=== PATIENT | male | born 1940 | race Hispanic/Latino ===

== ENCOUNTER → 2017-12-09 | Outpatient (CLI) | payer OTHER | END | disposition home or self-care (01) | LOC: SHCH 12:31 | PROVIDERS: ATTEND Internal Medicine Cardiovascular Disease | DX: I10 Essential (primary) hypertension (principal); R60.9 Edema, unspecified; R94.31 Abnormal electrocardiogram [ECG] [EKG] | CPT/HCPCS: 93925; 93970 ==

== ENCOUNTER → 2017-12-11 | Outpatient (CLI) | payer OTHER | END | disposition home or self-care (01) | LOC: SHCH 14:57 | PROVIDERS: ATTEND Internal Medicine Cardiovascular Disease | DX: I10 Essential (primary) hypertension (principal); R94.31 Abnormal electrocardiogram [ECG] [EKG]; R06.9 Unspecified abnormalities of breathing | CPT/HCPCS: 93306 ==

== ENCOUNTER → 2018-06-04 | Outpatient (CLI) | payer OTHER | END | disposition home or self-care (01) | LOC: SHCH 14:26 | PROVIDERS: ATTEND Internal Medicine Cardiovascular Disease | DX: I87.2 Venous insufficiency (chronic) (peripheral) (principal) | CPT/HCPCS: 93970 ==

== ENCOUNTER → 2019-03-09 | Outpatient (CLI) | payer OTHER | END | disposition home or self-care (01) | LOC: RAH 10:30 | PROVIDERS: ATTEND Family Medicine | DX: K80.21 Calculus of gallbladder without cholecystitis with obstruction (principal); K76.0 Fatty (change of) liver, not elsewhere classified | CPT/HCPCS: 76700 ==

== ENCOUNTER → 2022-08-28 | Outpatient (CLI) | payer OTHER | END | disposition home or self-care (01) | LOC: SHCH 14:14 | PROVIDERS: ATTEND Internal Medicine Cardiovascular Disease | DX: I87.2 Venous insufficiency (chronic) (peripheral) (principal); I82.511 Chronic embolism and thrombosis of right femoral vein | CPT/HCPCS: 93970 ==

== ENCOUNTER → 2023-04-29 | Outpatient (CLI) | payer OTHER | END | disposition home or self-care (01) | LOC: SHCH 14:56 | PROVIDERS: ATTEND Internal Medicine Cardiovascular Disease | DX: R06.09 Other forms of dyspnea (principal); R60.9 Edema, unspecified | CPT/HCPCS: 93306 ==

== ENCOUNTER 2024-11-14 19:04 | Emergency (ER) | payer OTHER ==
[~2024-11-14] VITALS: Ht 175.3 cm; Wt 124.7 kg
[~2024-11-14 19:04] MED LIST: DUTA0.5C37 PO
[2024-11-14] MEDS ORDERED: FURO20TA4 PO (19:47)
[2024-11-14 19:57] LABS: BASOPHILS # (AUTO) 0.01 K/uL (0.00-0.20); BASOPHILS % (AUTO) 0.1 % (0.0-5.0); EOSINOPHILS # (AUTO) 0.02 K/uL (0.00-0.70); EOSINOPHILS % (AUTO) 0.2 % (0.0-8.0); HEMATOCRIT 34.4 % (42-54); IMMATURE GRANULOCYTE ABSOLUTE 0.03 K/uL (0-1); LYMPHOCYTES # (AUTO) 0.4 K/uL (1.0-4.8); LYMPHOCYTES % (AUTO) 4.5 % (21.0-51.0); MEAN CORPUSCULAR HGB CONC 30.2 g/dL (32.0-36.0); MEAN CORPUSCULAR VOLUME 72.9 fL (79-99); MONOCYTES # (AUTO) 0.5 K/uL (0.1-1.0); NEUTROPHILS # (AUTO) 8.4 K/uL (1.8-7.7); NEUTROPHILS % (AUTO) 89.9 % (40.0-77.0); PLATELET COUNT (AUTO) 274 K/uL (130-400); RED BLOOD CELL COUNT(AUTO) 4.72 MIL/uL (4.50-6.20); WHITE BLOOD COUNT (AUTO) 9.4 K/uL (4.8-10.8)
[2024-11-14] MEDS: DICYCLOMINE HCL 10 MG/5 ML ML PO ONE (19:59)
[2024-11-14] MEDS: MAG/ALUM/SIMETH 30 ML UDCUP PO ONE (19:59)
[2024-11-14] MEDS: PANTOPrazole 40 MG/VIAL IVP ONE (19:59)
[2024-11-14] MEDS: LIDOCAINE HCL 2% VISCOUS 15 ML UDCUP PO ONE (19:59)
[2024-11-14 20:06] LABS: CREATININE 0.8 mg/dL (0.5-1.3); POTASSIUM 4.3 mmol/L (3.5-5.1)
[2024-11-14 20:16] LABS: ALBUMIN 2.7 g/dL (3.5-5.0); BILIRUBIN,DIRECT 0.1 mg/dL (0.0-0.3); BILIRUBIN,TOTAL 0.4 mg/dL (0.2-1.0); TOTAL PROTEIN, SERUM 6.7 g/dL (6.0-8.3)
--- NOTE | 2024-11-14 20:31 | EKG ---
[facility] Test Date: 2024-11-14 Test Time: 19:32:00 Pat Name: YVETTE HATHAWAY Department: [facility] Room: Gender: M Steward/Stewardess: [id number] : 1940 Requested By: ELLEN GODDARD Order Number: [id number] Reading MD: Kade Vitale Measurements Intervals [place] Rate: 78 P: -24 SD: 181 QRS: -32 QRSD: 112 T: 37 QT: 416 QTc: 473 Interpretive Statements Sinus rhythm Multiple premature complexes, vent & supraven Left ventricular hypertrophy Compared to ECG 08/25/2016 17:48:38 Left ventricular hypertrophy now present Sinus arrhythmia no longer present Ventricular premature complex(es) no longer present Fusion complex(es) no longer present Incomplete right bundle-branch block no longer present Electronically Signed On 11-15-2024 19:31:37 CDT by Kade Vitale Please click the below link to view image of tracing.
[2024-11-14] MEDS: ondanSETRON 4MG INJ IVP ONE (20:48)
--- NOTE | 2024-11-14 21:10 | ERN ---
ED Note History of Present Illness Stated Complaint: ABDOMINAL BLOATING Chief Complaint: Abdominal Pain Time Seen by MD: 19:09 Time Seen by Midlevel: 19:09 Dictation: The patient is an 84-year-old male with a history of prostate cancer, appendectomy, arthritis who presents to the emergency department with complaints of abdominal bloating onset yesterday. Patient reports sensation of bloating but no pain. Denies any fevers, diarrhea or constipation, nausea or vomiting. Patient reports last bowel movement was just prior to arrival. Allergies: Coded Allergies: No Known Drug Allergies (Unverified Allergy, Unknown, 03/18/24) Home Meds Reported Medications Furosemide (Furosemide) 20 Mg Tablet, 2 TAB PO BID for 30 Days, #30 TAB 0 Refills 11/14/24 Dutasteride (Dutasteride) 0.5 Mg Capsule, 1 CAP PO DAILY 03/18/24 Past Medical History Past Medical History: Cancer, Other Additional Past Medical Hx: PROSTATE CA Surgical History: Appendectomy RN Note Reviewed/Agreed w/PFSH: Yes Review of System Dictation Constitutional: Negative for fever,chills, and weight loss Eyes: Negative for injury, pain,redness, and discharge ENT: Negative for injury,pain or swelling Cardiovascular: Negative for chest pain, palpitations, and edema Respiratory: Negative for shortness of breath, cough, and wheezing, Abdomen/GI: Negative for nausea, vomiting, diarrhea, and constipation positive for abdominal pain, Back: Negative for injury and pain : Negative for injury, bleeding and discharge MS/Extremity: Negative for injury and deformity Skin: Negative for rash, and discoloration Neuro: Negative for headache, weakness, numbness, tingling, and seizure Psych: Negative for suicide ideation, homicidal ideation, and hallucinations Initial Vital Sign VS Vital Signs Date Time Temp Pulse Resp B/P (MAP) Pulse Ox O2 Delivery O2 Flow Rate FiO2 11/14/24 19:10 97.9 62 18 147/80 95 Room Air 0 11/14/24 19:16 21 Physical Exam Dictation Vital Signs reviewed General Appearance: Alert, oriented x 3, no acute distress, well developed, nourished. Head and Face: non-traumatic. Eyes: pink conjunctivas, eyelid no trauma, anterior chamber with arcus senilis. Ears: Pinnas intact and no signs of trauma or erythema ear canals clear and no discharge TM no erythema Nose: No discharge, no bleeding. Oropharynx: Mouth normal, tongue pink. pharynx clear,no erythema, tonsils no exudates, no abscesses noted, mucous membrane moist Neck: Supple, non-tender, no thyromegaly, no masses, no JVD, no bruits Breast:Deferred Chest:No tenderness, no crepitus, no paradoxical movement, no retractions Lungs:Clear, well-ventilated, symmetric, no rales, no wheezing, no rhonchi, no stridor, good breath sounds bilaterally Heart: Regular rate, regular rhythm, no murmur, no gallops Vascular: Bilateral 4+ pitting edema (patient reports chronic) Abdomen: Soft, positive bowel sounds, nondistended, no guarding, nontender, no rebound, no masses no hepatomegaly, no splenomegaly, no Escobar's sign, no hernias. Rectal: Deferred Genital: Deferred Neurological: Normal speech, motor function intact, sensory function intact Musculoskeletal: Neck nontender, full range of motion, back nontender, full range of motion, Extremities: nontender, full range of motion Skin: Color pink, dry, no turgor, no rash, no lacerations, no abrasions, no contusions. Lymphatic: Deferred Results (Laboratory/Radiology) Laboratory/Radiology Laboratory Tests Test 11/14/24 19:40 White Blood Count 9.4 K/uL (4.8-10.8) Red Blood Count 4.72 MIL/uL (4.50-6.20) Hemoglobin 10.4 g/dL (14.0-18.0) L Hematocrit 34.4 % (42-54) L Mean Corpuscular Volume 72.9 fL (79-99) L Mean Corpuscular Hemoglobin 22.0 pg (27.0-33.0) L Mean Corpuscular Hemoglobin Concent 30.2 g/dL (32.0-36.0) L Red Cell Distribution Width 15.0 % (11.0-15.5) Platelet Count 274 K/uL (130-400) Mean Platelet Volume 8.6 fL (7.5-10.5) Immature Granulocyte % (Auto) 0.3 % (0-1) Neutrophils (%) (Auto) 89.9 % (40.0-77.0) H Lymphocytes (%) (Auto) 4.5 % (21.0-51.0) L Monocytes (%) (Auto) 5.0 % (3.0-13.0) Eosinophils (%) (Auto) 0.2 % (0.0-8.0) Basophils (%) (Auto) 0.1 % (0.0-5.0) Neutrophils # (Auto) 8.4 K/uL (1.8-7.7) H Lymphocytes # (Auto) 0.4 K/uL (1.0-4.8) L Monocytes # (Auto) 0.5 K/uL (0.1-1.0) Eosinophils # (Auto) 0.02 K/uL (0.00-0.70) Basophils # (Auto) 0.01 K/uL (0.00-0.20) Absolute Immature Granulocyte (auto 0.03 K/uL (0-1) Nucleated Red Blood Cells 0.0 % (0.0-0.19) White Cell Morphology Comment See comments Red Blood Cell Morphology ANISO 1+ Sodium Level 134 mmol/L (136-145) L Potassium Level 4.3 mmol/L (3.5-5.1) Chloride Level 97 mmol/L (101-111) L Carbon Dioxide Level 37 mmol/L (21-32) H Blood Urea Nitrogen 9 mg/dL (7-18) Creatinine 0.8 mg/dL (0.5-1.3) Glomerular Filtration Rate Calc 87 mL/min (>90) Random Glucose 128 mg/dL (70-105) H Total Calcium 9.5 mg/dL (8.5-10.1) Total Bilirubin 0.4 mg/dL (0.2-1.0) Direct Bilirubin 0.1 mg/dL (0.0-0.3) Aspartate Amino Transf (AST/SGOT) 24 U/L (10-37) Alanine Aminotransferase (ALT/SGPT) 11 U/L (12-78) L Alkaline Phosphatase 110 U/L (50-136) Troponin I High Sensitivity 16 ng/L (4-75) Total Protein 6.7 g/dL (6.0-8.3) Albumin 2.7 g/dL (3.5-5.0) L Lipase 31 U/L (16-77) SERVICE [id number] REASON: ABD PAIN ORDERING PHYSICIAN: ELLEN GODDARD MACHINE BINDING FOLDER PROCEDURE: ABD PEL WO - CT ABDOMEN/PELVIS W/O CONTRAST CT ABDOMEN/PELVIS W/O CONTRAST HISTORY: Abdominal pain COMPARISON: 08/25/2016 TECHNIQUE: Multiple sequential axial images of the abdomen and pelvis were obtained from the dome of the diaphragm through symphysis pubis. Patient was not given contrast through intravenous route. Oral contrast was not given. FINDINGS: No pleural effusion is seen bilaterally. There is no evidence of parenchymal disease or pulmonary nodule of the visualized lower lungs. Degenerative changes of the thoracolumbar spine are present. The heart is not enlarged. Gallstones are seen in the contracted gallbladder. Gastric distention is seen. Fluid filled small bowel loops and colon suggestive of enterocolitis. There is diverticulosis. The liver, spleen, adrenal glands and pancreas are unremarkable. There is no evidence of hydronephrosis bilaterally. No evidence of renal stone is seen. Fecal material is seen in the colon. There are normal size retroperitoneal and mesenteric lymph nodes. No ascites is seen. Atherosclerotic changes are present. Pelvic sidewalls are symmetric bilaterally. Bladder is poorly distended without wall thickening. IMPRESSION: 1. Gallstones are seen in the contracted gallbladder. Gastric distention is seen. Fluid filled small bowel loops and colon suggestive of enterocolitis. There is diverticulosis. CT was performed with one or more following dose reduction techniques: automated exposure control, adjustment of the mA and kv according to patient's size, or use of a iterative reconstruction technique. Labs Reviewed?: Yes EKG: (+) rhythm (Sinus rhythm) EKG Comment: Date:11/14/2024 Time:193 Ventricular rate:78 NE interval:181 QRS duration:112 QT/QTc:473 EKG interpretation: Sinus rhythm Reviewed by ED Attending no STEMI ED Course ED Course Orders Procedure Category Date Status Time Cbc With Differential LAB 11/14/24 Complete 19:22 Troponin I High LAB 11/14/24 Complete Sensitivity 19:22 Urinalysis Profile LAB 11/14/24 Logged 19:22 Lipase LAB 11/14/24 Complete 19:22 Basic Metabolic Panel LAB 11/14/24 Complete 19:22 Hepatic Function Panel LAB 11/14/24 Complete 19:22 12 Lead Ekg Tracing- EKG 11/14/24 Complete Technical 19:22 Lidocaine Hcl 2% PHA 11/14/24 Complete Viscous (Lidocaine Hcl 19:30 Mag/Alum/Simeth 30ml PHA 11/14/24 Complete (Maalox Plus 30ml) 19:30 Pantoprazole 40mg Inj PHA 11/14/24 Complete (Protonix 40mg Inj 19:30 Dicyclomine Hcl PHA 11/14/24 Complete (Bentyl 10mg/5ml 19:30 Ondansetron 4mg Inj PHA 11/14/24 Complete (Zofran 4mg Inj) 21:00 Ct Abdomen/Pelvis W/O CT 11/14/24 Resulted Contrast 23:05 Current Medications Medications (Trade) Dose Ordered Sig/Kimberli Route PRN Reason Start Time Stop Time Status Last Admin Dose Admin Al Hydroxide/Mg Hydroxide (MAALox PLUS 30ML) 30 ml ONCE ONCE PO 11/14/24 19:30 11/14/24 19:34 DC 11/14/24 19:59 Dicyclomine HCl (Bentyl 10mg/5ml Syrup) 10 mg ONCE ONCE PO 11/14/24 19:30 11/14/24 19:34 DC 11/14/24 19:59 Lidocaine HCl (Lidocaine HCl 2% Viscous) 10 ml ONCE ONCE PO 11/14/24 19:30 11/14/24 19:34 DC 11/14/24 19:59 Ondansetron HCl (zoFRAN 4MG INJ) 4 mg ONCE ONCE IVP 11/14/24 21:00 11/14/24 21:01 DC 11/14/24 20:48 Pantoprazole Sodium (PROTonix 40MG INJ) 40 mg ONCE ONCE IVP 11/14/24 19:30 11/14/24 19:34 DC 11/14/24 19:59 Vital Signs Date Time Temp Pulse Resp B/P (MAP) Pulse Ox O2 Delivery O2 Flow Rate FiO2 11/14/24 19:16 98.4 83 18 125/74 95 Room Air* 0 21 11/14/24 19:10 97.9 62 18 147/80 95 Room Air 0 Medical Decision Making MDM The patient is an 84-year-old male with a history of prostate cancer, appendectomy, arthritis who presents to the emergency department with complaints of abdominal bloating onset yesterday. Patient reports sensation of bloating but no pain. Denies any fevers, diarrhea or constipation, nausea or vomiting. Patient reports last bowel movement was just prior to arrival. CBC showed no leukocytosis, mild microcytic anemia, chemistry showed mild hyponatremia, hypochloremia, normal liver enzymes, negative lipase, negative troponin CT showed some enterocolitis and gallstones. Patient with a nontender abdomen to palpation. Labs and imaging discussed with the patient who agrees to be discharged and follow up with primary doctor. Patient in no acute distress. Stable vital signs. Disposition delayed due to patient initially refusing CT scan. Then patient agreed to have CT scan done. Differential diagnosis: Gastroenteritis, gastritis, electrolyte imbalance, bowel obstruction Need for hospitalization: Patient does not meet criteria for hospitalization. There are no social concerns with this patient. DX & DISP Disposition: Discharge Departure Impression: Primary Impression: Abdominal discomfort Additional Impressions: Enterocolitis, Gallstones Condition: Stable Scripts Pantoprazole Sodium (Pantoprazole Sodium) 20 Mg Tablet.dr 1 TAB PO DAILY for 30 Days, #30 TAB 0 Refills Prov: ELLEN GODDARD 11/15/24 Additional Instructions: Please follow up with your primary doctor in 1-2 days. If symptoms worsen please return to ER. Avoid any foods that increase your discomfort like fatty foods, FOLLOW-UP WITH PRIMARY CARE PROVIDER IN 1 TO 2 DAYS. TAKE MEDICATIONS DIRECTED HERE IN THE EMERGENCY ROOM. OKAY TO CONTINUE HOME MEDICATIONS UNLESS OTHERWISE DISCUSSED DURING YOUR VISIT IN THE EMERGENCY ROOM TODAY. RETURN TO YOUR NEAREST EMERGENCY ROOM IF SYMPTOMS WORSEN OR IF THERE IS NO IMPROVEMENT. CALL 911 IF YOU NEED IMMEDIATE ASSISTANCE. TAKE TYLENOL OR MOTRIN OVER-THE-CO UNTER NEEDED AND IF NO CONTRAINDICATIONS ARE PRESENT. INCREASE ORAL HYDRATION. A WOUND CULTURE OR URINE CULTURE WAS ORDERED HERE IN THE EMERGENCY ROOM DEPARTMENT PLEASE FOLLOW-UP WITH PRIMARY CARE PROVIDER AND ADVISE THEM TO GET REPEAT PORTS FROM OUR FACILITY. IF YOU HAD ANY NHI WRAP/SPLINTS THAT WERE APPLIED HERE, PLEASE DO NOT REMOVE THEM UNTIL YOU SEE YOUR PRIMARY CARE OR SPECIALTY. Referrals: MENDEL LIN (PCP) Time of Disposition: 23:58 I have reviewed the case, and I agree with, Diagnosis and Plan ELLEN GODDARD Nov 14, 2024 21:10
--- NOTE | 2024-11-14 23:45 | HMCIMG ---
CT ABDOMEN/PELVIS W/O CONTRAST HISTORY: Abdominal pain COMPARISON: 08/25/2016 TECHNIQUE: Multiple sequential axial images of the abdomen and pelvis were obtained from the dome of the diaphragm through symphysis pubis. Patient was not given contrast through intravenous route. Oral contrast was not given. FINDINGS: No pleural effusion is seen bilaterally. There is no evidence of parenchymal disease or pulmonary nodule of the visualized lower lungs. Degenerative changes of the thoracolumbar spine are present. The heart is not enlarged. Gallstones are seen in the contracted gallbladder. Gastric distention is seen. Fluid filled small bowel loops and colon suggestive of enterocolitis. There is diverticulosis. The liver, spleen, adrenal glands and pancreas are unremarkable. There is no evidence of hydronephrosis bilaterally. No evidence of renal stone is seen. Fecal material is seen in the colon. There are normal size retroperitoneal and mesenteric lymph nodes. No ascites is seen. Atherosclerotic changes are present. Pelvic sidewalls are symmetric bilaterally. Bladder is poorly distended without wall thickening. IMPRESSION: 1. Gallstones are seen in the contracted gallbladder. Gastric distention is seen. Fluid filled small bowel loops and colon suggestive of enterocolitis. There is diverticulosis. CT was performed with one or more following dose reduction techniques: automated exposure control, adjustment of the mA and kv according to patient's size, or use of a iterative reconstruction technique.
[2024-11-15] MEDS ORDERED: PANT20TA18 PO (00:01)
[2024-11-15 00:13] VITALS: BP 115/54; PULSE 78; RESP 18; TEMP 98.3; O2SAT 97
== END 2024-11-15 00:20 | disposition home or self-care (01) ==
LOC: EDH 19:04
DX: R14.0 Abdominal distension (gaseous) (principal); K52.9 Noninfective gastroenteritis and colitis, unspecified; K80.20 Calculus of gallbladder without cholecystitis without obstruction; Z79.899 Other long term (current) drug therapy; Z85.46 Personal history of malignant neoplasm of prostate; Z90.49 Acquired absence of other specified parts of digestive tract
CPT/HCPCS: 99285; 74176; 96374; 96375; 80076; 84484; 80048; 83690; 85025; 36415; 93005; J2405; J2470